=== PATIENT | female | born 1955 | race Caucasian/White ===

== ENCOUNTER 2018-08-25 17:40 | Emergency (ER) | payer OTHER ==
[~2018-08-25] VITALS: Ht 180.3 cm; Wt 72.6 kg
[~2018-08-25 17:40] MED LIST: MOBIC15 MG PO
[2018-08-25 18:41] LABS: WBC 7.8 thou/uL (4.0-11.0)
[2018-08-25 18:44] LABS: HEMATOCRIT 41.1 % (37.0-47.0); HEMOGLOBIN 12.9 gm/dL (12.0-15.0); MCH 24.8 pg (26.0-34.0); MCHC 31.4 g/dL (28.0-37.0); NUCLEATED RBCS 0 /100WBC; PLATELET COUNT* 591 thou/uL (150-400); RDW-CV 15.7 % (10.5-14.5)
[2018-08-25 18:49] LABS: ANION GAP 5 mmol/L (7-16); BUN 19 mg/dL (7-18); CALCIUM 9.1 mg/dL (8.5-10.1); CHLORIDE 102 mmol/L (98-107); CO2 29 mmol/L (21-32); CREATININE 0.9 mg/dL (0.6-1.3); GLUCOSE 101 mg/dL (70-99); POTASSIUM 4.1 mmol/L (3.5-5.1); SODIUM 136 mmol/L (136-145)
[2018-08-25 18:52] LABS: APTT 25.9 Seconds (25.0-31.3); PROTIME 10.7 Seconds (9.20-11.50)
[2018-08-25 19:00] LABS: ALBUMIN 3.6 g/dL (3.4-5.0); ALKALINE PHOSPHATASE 111 U/L (46-116); NT-PRO BRAIN NAT PEPTIDE 135 pg/mL (<300); SGOT 14 U/L (15-37); SGPT 13 U/L (30-65); TOTAL BILIRUBIN 0.2 mg/dL (<0.1-1.0); TOTAL PROTEIN 8.1 g/dL (6.4-8.2); TROPONIN-I LEVEL <0.06 ng/mL (<0.06)
[2018-08-25 19:25] LABS: ABSOLUTE EOSINOPHILS 0.9 thou/uL (0.0-0.7); ABSOLUTE LYMPHOCYTES 2.7 thou/uL (0.8-5.3); ABSOLUTE MONOCYTES 0.5 thou/uL (0.0-1.2); ABSOLUTE NEUTROPHILS 3.7 thou/uL (1.6-8.1)
[2018-08-25 19:26] LABS: PLATELET ESTIMATE INCREASED
[2018-08-25 20:33] VITALS: BP 131/82
--- NOTE | 2018-08-26 10:19 | EKG ---
[place] [address] ELECTROCARDIOGRAM REPORT Name: DANNYLOUISA SEGURA Room: [facility]#: [id number] Admission: 08/25/18 Attend Phys: Discharge: 08/25/18 Date of : 57 Report #: [id number] THIS REPORT FOR: //name// [facility] ED Test Date: 2018-08-25 Test Time: 18:10:51 Pat Name: LOUISA DELGADO Department: Room: Gender: F [employer] Apprentice: Mert LOVE : 1955 Requested By: Leslye Mclaughlin Order Number: [id number] MD: Villa Zuñiga Measurements Intervals [place] Rate: 79 P: 31 DC: 146 QRS: 22 QRSD: 86 T: -32 QT: 361 QTc: 414 Interpretive Statements Sinus rhythm Nonspecific T abnormalities, diffuse leads No previous ECG available for comparison Electronically Signed On 08-26-2018 10:18:53 CDT by Villa Zuñiga [email or web address] <ELECTRONICALLY SIGNED> By: Villa Zuñiga MD, [facility] 08/26/18 1018 1810 1810 Villa Zuñiga MD, FACC /EPI
== END 2018-08-25 20:33 | disposition home or self-care (01) ==
LOC: M.ERS 17:40
PROVIDERS: Nurse Practitioner Family
DX: J04.0 Acute laryngitis (principal); M79.661 Pain in right lower leg; R06.00 Dyspnea, unspecified; K21.9 Gastro-esophageal reflux disease without esophagitis; Z86.718 Personal history of other venous thrombosis and embolism